=== PATIENT | male | born 1955 | race American Indian/Alaskan Native ===

== ENCOUNTER 2020-11-09 23:09 | Inpatient (IN) | payer MEDICARE ==
[2020-11-10 01:56] LABS: Basophils # (Auto) 0.1 K/mm3 (0.0-0.1); Basophils % (Auto) 0.8 % (0.0-1.8); Eosinophils # (Auto) 0.1 K/mm3 (0.0-0.4); Eosinophils % (Auto) 0.8 % (0.0-4.3); Hematocrit 45.1 % (35.5-45.6); Hemoglobin 15.3 gm/dl (11.8-15.2); Lymphocytes # (Auto) 1.3 K/mm3 (1.2-5.4); Lymphocytes % (Auto) 12.4 % (13.4-35.0); Mean Corpuscular HGB Conc 34 % (32-34); Mean Corpuscular Volume 100 fl (84-94); Monocytes # (Auto) 0.5 K/mm3 (0.0-0.8); Monocytes % (Auto) 4.9 % (0.0-7.3); Platelet Count 195 K/mm3 (140-440); Red Blood Count 4.51 M/mm3 (3.65-5.03); Red Cell Distribution Width 14.3 % (13.2-15.2)
[2020-11-10 02:14] LABS: Calcium 9.6 mg/dL (8.4-10.2)
--- NOTE | 2020-11-10 02:21 | Emergency Department Report ---
ED Dizziness HPI - General Chief Complaint: Dizziness Stated Complaint: DIZZINESS Time Seen by Provider: 11/10/20 02:15 Source: patient Mode of arrival: Stretcher Limitations: No Limitations - History of Present Illness Initial Comments: Patient is a 65-year-old male who presents emergency room with complaints of dizziness. Patient states started about 3 or 4 hours ago. Patient states that he got so dizzy and lightheaded that he fell. Patient states he felt weak and fell to the ground. Patient states he hit his right forearm. Patient complains of right forearm pain at a 10 out of 10. Patient states he is still dizzy at times. Patient states his right forearm pain is better with rest and worse with movement and palpation. Patient states that this is better with rest and worse with movement and exertion. Patient denies chest pain or shortness of breath. Patient denies any SI. Patient denies loss of conscious. Patient denies syncopal episode. Patient denies blurry vision. Patient denies fever and chills. Patient denies neck stiffness Patient denies recent travel. Patient denies recent international travel. Patient denies exposure to the novel coronavirus. Patient denies sick contacts. Patient denies fever and chills. Patient denies cough. Patient denies diarrhea. Patient denies coming in contact with anybody with symptoms of the novel coronavirus. Complaint: dizziness, lightheadedness, near syncope, difficulty walking -: Sudden Timing: sudden onset Description: lightheadedness, off-balance History of Same: No History of Trauma: Yes (Right arm) Severity: severe Improves With: remaining still, rest Worsens With: movement Associated Symptoms: weakness. denies: ataxia, chest pain, confusion, cough, diaphoresis, fever/chills, loss of appetite, malaise, rash, seizure, shortness of breath, syncope - Related Data Allergies Allergy/AdvReac Type Severity Reaction Status Date / Time No Known Allergies Allergy Unverified 11/10/20 00:22 ED Review of Systems ROS: Stated complaint: DIZZINESS Other details as noted in HPI Constitutional: weakness. denies: chills, fever Eyes: denies: eye pain, eye discharge, vision change ENT: denies: ear pain, throat pain Respiratory: denies: cough, shortness of breath, wheezing Cardiovascular: denies: chest pain, palpitations Endocrine: no symptoms reported Gastrointestinal: denies: abdominal pain, nausea, diarrhea Genitourinary: denies: urgency, dysuria Musculoskeletal: denies: back pain, joint swelling, arthralgia Skin: denies: rash, lesions Neurological: as per HPI, weakness. denies: headache, paresthesias Psychiatric: denies: anxiety, depression Hematological/Lymphatic: denies: easy bleeding, easy bruising ED Past Medical Hx - Past Medical History Previous Medical History?: Yes Hx Hypertension: Yes Hx Renal Disease: No Hx Psychiatric Treatment: Yes (Schizophrenia) - Surgical History Past Surgical History?: No - Family History Family history: no significant - Social History Smoking Status: Current Every Day Smoker Substance Use Type: None ED Physical Exam - General Limitations: No Limitations General appearance: alert, in no apparent distress - Head Head exam: Present: atraumatic, normocephalic - Eye Eye exam: Present: normal appearance - ENT ENT exam: Present: mucous membranes moist - Neck Neck exam: Present: normal inspection - Respiratory Respiratory exam: Present: normal lung sounds bilaterally. Absent: respiratory distress - Cardiovascular Cardiovascular Exam: Present: regular rate, normal rhythm. Absent: systolic murmur, diastolic murmur, rubs, gallop - GI/Abdominal GI/Abdominal exam: Present: soft, normal bowel sounds - Rectal Rectal exam: Present: deferred - Extremities Exam Extremities exam: Present: normal inspection - Back Exam Back exam: Present: normal inspection - Neurological Exam Neurological exam: Present: alert, oriented X3 - Psychiatric Psychiatric exam: Present: normal affect, normal mood - Skin Skin exam: Present: warm, dry, intact, normal color. Absent: rash ED Course Vital Signs 11/10/20 11/10/20 11/10/20 00:11 00:30 01:53 Temperature 97.8 F 98.0 F Pulse Rate 63 103 H 73 Respiratory 18 16 17 Rate Blood Pressure 128/74 155/106 Blood Pressure [Left] O2 Sat by Pulse 99 99 Oximetry 11/10/20 11/10/20 11/10/20 02:00 02:30 03:00 Temperature Pulse Rate 77 99 H 74 Respiratory 25 H 29 H 15 Rate Blood Pressure 131/101 131/101 131/101 Blood Pressure 139/107 [Left] O2 Sat by Pulse 100 95 99 Oximetry - Reevaluation(s) Reevaluation #1: I discussed all results with patient. I discussed plan of care with patient. Patient agrees with plan of care and admission. Patient to be admitted to the hospitalist service. 11/10/20 03:41 - Consultations Consultation #1: Hospitalist consulted for admission. Hospitalist to admit patient. 11/10/20 03:41 ED Medical Decision Making - Lab Data Result diagrams: 11/10/20 01:35 11/10/20 01:35 - EKG Data -: EKG Interpreted by Me EKG shows normal: intervals, ST-T waves - EKG Data Interpretation: other (Wide QRS, right bundle branch block, axis deviation, atrial fibrillation, PVCs) - Radiology Data Radiology results: report reviewed, image reviewed interpreted by me: Forearm x-ray: No acute findings, no fracture, soft tissue normal. XR forearm RT , 2 views INDICATION / CLINICAL INFORMATION: Fall, right forearm pain. COMPARISON: None available. FINDINGS/IMPRESSION: No acute fracture or malalignment. No focal soft tissue abnormality. CT HEAD WITHOUT CONTRAST INDICATION / CLINICAL INFORMATION: Dizziness, fall, weakness, lightheadedness.. TECHNIQUE: All CT scans at this location are performed using CT dose reduction for ALARA by means of automated exposure control. COMPARISON: None available. FINDINGS: BRAIN PARENCHYMA: No acute intracranial hemorrhage. No evidence of recent infarct. No mass effect or midline shift. VENTRICULAR SYSTEM/EXTRA-AXIAL SPACES: Age-related cerebral atrophy. No extra- axial fluid collection. ORBITS: Normal as visualized. SKELETAL SYSTEM/SOFT TISSUES: Normal bones and soft tissues. PARANASAL SINUSES/MASTOID AIR CELLS: No significant abnormality. ADDITIONAL FINDINGS: None. IMPRESSION: 1. No acute intracranial abnormality. - Medical Decision Making Patient is a 65-year-old male who presents emergency room with complaints of dizziness, fall, arm pain, weakness. Patient states that he got dizzy and lightheaded and fell and hit his right arm. Patient lost consciousness or hit his head. Patient had labs done showed acute renal failure. Patient had an EKG done which shows new onset A. fib. Patient had a x-ray of his right forearm and it was negative for acute findings of fracture. Patient had a head CT which was negative for acute findings. I personally reviewed the x-ray and the EKG. Patient given IV fluids in the ER. Patient admitted to the hospital service for further evaluation treatment. Critical care time documented due to the multiple reassessments, prolonged time at the bedside, interpretation of diagnostics and labs. - Differential Diagnosis Dizziness, dehydration, A. fib, weakness, fall Critical Care Time: Yes Critical care time in (mins) excluding proc time.: 35 Critical care attestation.: If time is entered above; I have spent that time in minutes in the direct care of this critically ill patient, excluding procedure time. Critical Care Time: 35 minutes ED Disposition Clinical Impression: Dizziness, Right forearm pain, Weakness, New onset atrial fibrillation Acute renal failure Qualifiers: Acute renal failure type: unspecified Qualified Code(s): N17.9 - Acute kidney failure, unspecified Fall Qualifiers: Encounter type: initial encounter Qualified Code(s): W19.XXXA - Unspecified fall, initial encounter Abrasion of right forearm Qualifiers: Encounter type: initial encounter Qualified Code(s): S50.811A - Abrasion of right forearm, initial encounter Disposition: 09 OP ADMIT IP TO THIS HOSP Is pt being admited?: Yes Does the pt Need Aspirin: No Condition: Critical Time of Disposition: 03:12
[2020-11-10] MEDS ORDERED: SODIUM CHLORIDE 0.9% 1000 ML 1,000 ML IV ONE (02:24)
--- NOTE | 2020-11-10 02:57 | XRay Report ---
XR forearm RT , 2 views INDICATION / CLINICAL INFORMATION: Fall, right forearm pain. COMPARISON: None available. FINDINGS/IMPRESSION: No acute fracture or malalignment. No focal soft tissue abnormality. Signer Name: Mark Gallo MD Signed: 11/10/2020 2:52 AM Workstation Name: [id number]
--- NOTE | 2020-11-10 03:18 | Cat Scan Report ---
CT HEAD WITHOUT CONTRAST INDICATION / CLINICAL INFORMATION: Dizziness, fall, weakness, lightheadedness.. TECHNIQUE: All CT scans at this location are performed using CT dose reduction for ALARA by means of automated exposure control. COMPARISON: None available. FINDINGS: BRAIN PARENCHYMA: No acute intracranial hemorrhage. No evidence of recent infarct. No mass effect or midline shift. VENTRICULAR SYSTEM/EXTRA-AXIAL SPACES: Age-related cerebral atrophy. No extra-axial fluid collection. ORBITS: Normal as visualized. SKELETAL SYSTEM/SOFT TISSUES: Normal bones and soft tissues. PARANASAL SINUSES/MASTOID AIR CELLS: No significant abnormality. ADDITIONAL FINDINGS: None. IMPRESSION: 1. No acute intracranial abnormality. Signer Name: Mark Gallo MD Signed: 11/10/2020 3:14 AM Workstation Name: [id number]
[2020-11-10] MEDS ORDERED: ONDANSETRON 4 MG/2 ML INJ IV PRN (04:16)
[2020-11-10] MEDS ORDERED: MORPHINE 2 MG/1 ML INJ IV PRN (04:16)
[2020-11-10] MEDS ORDERED: MORPHINE 4 MG/1 ML INJ IV PRN (04:16)
[2020-11-10] MEDS ORDERED: MAGNESIUM HYDROXIDE (MOM) ORAL LIQD UDC PO PRN (04:16)
--- NOTE | 2020-11-10 04:29 | History and Physical Report ---
History of Present Illness Date of examination: 11/10/20 Date of admission: 11/10/2020 Chief complaint: Dizziness Lightheadedness History of present illness: 65-year-old -[place] male with known history of hypertension presents to the emergency room today with complaints of dizziness and lightheadedness which started a few hours prior to arrival in the emergency room. Patient said he felt weak and thereafter fell to the ground. He denies any loss of consciousness, no head injury, no headache. Patient denies any history of fever or chills, no diaphoresis, no nausea or vomiting, no chest pain or shortness of breath, no abdominal pain, no hematuria or dysuria. Patient denies any history of syncope and denies any history of seizure disorder. Patient complains of right forearm pain after the fall. He denies any unsteady gait. Work-up in the emergency room today, labs revealed elevated BUN and creatinine. EKG reveals atrial fibrillation with a rate of 87. CT scan of the head was unremarkable. X-ray of the right forearm did not show any acute abnormality. Patient is being admitted with dehydration with JAKE, near syncope and new onset atrial fibrillation. Past History Past Medical History: hypertension, other (Schizophrenia) Past Surgical History: No surgical history Social history: smoking (Current daily smoker) Family history: no significant family history Medications and Allergies Allergies Allergy/AdvReac Type Severity Reaction Status Date / Time No Known Allergies Allergy Unverified 11/10/20 00:22 Active Meds: Active Medications Acetaminophen (Acetaminophen 325 Mg Tab) 650 mg PO Q4H PRN PRN Reason: Pain MILD(1-3)/Fever >100.5/FUENTES Sodium Chloride (Nacl 0.9% 1000 Ml) 1,000 mls @ 125 mls/hr IV DIRECT NIURKA Magnesium Hydroxide (Magnesium Hydroxide (Mom) Oral Liqd Udc) 30 ml PO Q4H PRN PRN Reason: Constipation Morphine Sulfate (Morphine 2 Mg/1 Ml Inj) 2 mg IV Q4H PRN PRN Reason: Pain, Moderate (4-6) Morphine Sulfate (Morphine 4 Mg/1 Ml Inj) 4 mg IV Q4H PRN PRN Reason: Pain , Severe (7-10) Ondansetron HCl (Ondansetron 4 Mg/2 Ml Inj) 4 mg IV Q8H PRN PRN Reason: Nausea And Vomiting Sodium Chloride (Sodium Chloride 0.9% 10 Ml Flush Syringe) 10 ml IV BID NIURKA Sodium Chloride (Sodium Chloride 0.9% 10 Ml Flush Syringe) 10 ml IV PRN PRN PRN Reason: LINE FLUSH Review of Systems Constitutional: no fever, no chills Ears, nose, mouth and throat: no nasal congestion, no sore throat Cardiovascular: no chest pain, no palpitations Respiratory: no cough, no shortness of breath Gastrointestinal: no abdominal pain, no nausea, no vomiting, no diarrhea Genitourinary Male: no dysuria, no hematuria, no flank pain, no nocturia Musculoskeletal: no neck pain, no low back pain Integumentary: no rash, no pruritis Neurological: other (Dizziness and lightheadedness) Psychiatric: no anxiety, no depression Endocrine: no polydipsia, no polyuria, no nocturia Exam - Constitutional Vitals: Temp Pulse Resp BP Pulse Ox 98.0 F 65 19 148/101 100 11/10/20 00:30 11/10/20 04:00 11/10/20 04:00 11/10/20 04:00 11/10/20 04:00 General appearance: Present: no acute distress, well-nourished - EENT Eyes: Present: PERRL, EOM intact. Absent: scleral icterus ENT: hearing intact, clear oral mucosa, dentition normal - Neck Neck: Present: supple, normal ROM - Respiratory Respiratory effort: normal Respiratory: bilateral: CTA - Cardiovascular Rhythm: irregularly irregular Heart Sounds: Present: S1 & S2. Absent: gallop, systolic murmur, diastolic murmur, rub, click - Extremities Extremities: no ischemia, pulses intact, pulses symmetrical, No edema, normal temperature, normal color, Full ROM Peripheral Pulses: within normal limits - Abdominal General gastrointestinal: Present: soft, non-tender, non-distended, normal bowel sounds. Absent: mass - Integumentary Integumentary: Present: clear, warm, dry. Absent: rash - Musculoskeletal Musculoskeletal: strength equal bilaterally - Psychiatric Psychiatric: appropriate mood/affect, intact judgment & insight, memory intact, cooperative - Neurologic Neurologic: CNII-XII intact, no focal deficits, moves all extremities - Additional findings Additional findings: Skin: Abrasion on the posterior aspect of the right forearm. Results - Labs CBC & Chem 7: 11/10/20 01:35 11/10/20 01:35 Labs: Abnormal lab results 11/10/20 11/10/20 Range/Units 01:35 01:35 Hgb 15.3 H (11.8-15.2) gm/dl MCV 100 H (84-94) fl MCH 34 H (28-32) pg Lymph % (Auto) 12.4 L (13.4-35.0) % Seg Neutrophils % 81.1 H (40.0-70.0) % Seg Neutrophils # 8.2 H (1.8-7.7) K/mm3 Potassium 3.5 L (3.6-5.0) mmol/L BUN 25 H (9-20) mg/dL Creatinine 1.6 H (0.8-1.3) mg/dL Glucose 118 H (75-100) mg/dL Assessment and Plan - Patient Problems (1) Acute renal failure Current Visit: Yes Status: Acute Qualifiers: Acute renal failure type: unspecified Qualified Code(s): N17.9 - Acute kidney failure, unspecified Plan to address problem: Possibly secondary to dehydration. Patient placed on IV fluid normal saline. Will monitor BUN and creatinine. Consult placed to nephrology for evaluation. (2) Fall Current Visit: Yes Status: Acute Qualifiers: Encounter type: initial encounter Qualified Code(s): W19.XXXA - Unspecified fall, initial encounter Plan to address problem: We will place on fall precautions. (3) New onset atrial fibrillation Current Visit: Yes Status: Acute Plan to address problem: Patient has no known history of atrial fibrillation. Consult placed to cardiology for evaluation. Meanwhile we will schedule patient for echocardiogram (4) DVT prophylaxis Current Visit: Yes Status: Acute Plan to address problem: Patient placed on subcutaneous heparin. (5) Full code status Current Visit: Yes Status: Acute Plan to address problem: Patient is a full code.
[2020-11-10] MEDS: SODIUM CHLORIDE 0.9% 1000 ML 1,000 ML IV SCH ×3 (04:53→19:35)
[2020-11-10] MEDS: HEPARIN 5,000 UNIT/1 ML VIAL SUB-Q SCH ×3 (06:51→22:06)
--- NOTE | 2020-11-10 10:32 | Consultation ---
History of Present Illness Consult date: 11/10/20 Requesting physician: RAE TREADWELL Consult reason: atrial fibrillation History of present illness: Patient is a 65-year-old male who presents emergency room with complaints of dizziness. Patient states started about 3 or 4 hours ago. Patient states that he got so dizzy and lightheaded that he fell. Patient states he felt weak and fell to the ground. Patient states he hit his right forearm. Patient complains of right forearm pain at a 10 out of 10. Patient states he is still dizzy at times. Patient states his right forearm pain is better with rest and worse with movement and palpation. Patient states that this is better with rest and worse with movement and exertion. Patient denies chest pain or shortness of breath. Patient denies any SI. Patient denies loss of conscious. Patient denies syncopal episode. Patient denies blurry vision. Patient denies fever and chills. Patient denies neck stiffness Patient denies recent travel. Patient denies recent international travel. Patient denies exposure to the novel coronavirus. Patient denies sick contacts. Patient denies fever and chills. Patient denies cough. Patient denies diarrhea. Patient denies coming in contact with anybody with symptoms of the novel coronavirus. Patient states that he has is under the care of a biomedical engineering technologist which he saw 1 week prior to hospital admission. Patient does not remember the name of the biomedical engineering technologist and is rather poor historian but might be [facility]. Will discuss with [facility] and try to learn where he is previously established. Past History Past Medical History: hypertension, other (Schizophrenia) Past Surgical History: No surgical history Social history: smoking (Current daily smoker) Family history: no significant family history Medications and Allergies Allergies Allergy/AdvReac Type Severity Reaction Status Date / Time No Known Allergies Allergy Unverified 11/10/20 00:22 Home Medications Medication Instructions Recorded Confirmed Last Taken Type Amlodipine Besylate [Norvasc] 5 mg PO DAILY 11/10/20 11/10/20 1 Day Ago History ~11/09/20 5 mg Aspirin [Aspirin BABY CHEW TAB] 81 mg PO QDAY 11/10/20 11/10/20 1 Day Ago History ~11/09/20 81 mg Metoprolol [Lopressor] 25 mg PO BID 11/10/20 11/10/20 1 Day Ago History ~11/09/20 25 mg amLODIPine [Norvasc] 5 mg PO DAILY 11/10/20 Unknown History hydroCHLOROthiazide 12.5 mg PO DAILY 11/10/20 11/10/20 1 Day Ago History [Hydrochlorothiazide] ~11/09/20 12.5 mg risperiDONE [RisperDAL] 3 mg PO HS 11/10/20 11/10/20 1 Day Ago History ~11/09/20 3 mg Active Meds: Active Medications Acetaminophen (Acetaminophen 325 Mg Tab) 650 mg PO Q4H PRN PRN Reason: Pain MILD(1-3)/Fever >100.5/FUENTES Heparin Sodium (Porcine) (Heparin 5,000 Unit/1 Ml Vial) 5,000 unit SUB-Q Q8HR NIURKA Last Admin: 11/10/20 06:51 Dose: 5,000 unit Documented by: Sodium Chloride (Nacl 0.9% 1000 Ml) 1,000 mls @ 125 mls/hr IV DIRECT NIURKA Last Admin: 11/10/20 08:00 Dose: 125 mls/hr Documented by: Magnesium Hydroxide (Magnesium Hydroxide (Mom) Oral Liqd Udc) 30 ml PO Q4H PRN PRN Reason: Constipation Morphine Sulfate (Morphine 2 Mg/1 Ml Inj) 2 mg IV Q4H PRN PRN Reason: Pain, Moderate (4-6) Morphine Sulfate (Morphine 4 Mg/1 Ml Inj) 4 mg IV Q4H PRN PRN Reason: Pain , Severe (7-10) Ondansetron HCl (Ondansetron 4 Mg/2 Ml Inj) 4 mg IV Q8H PRN PRN Reason: Nausea And Vomiting Sodium Chloride (Sodium Chloride 0.9% 10 Ml Flush Syringe) 10 ml IV BID NIURKA Sodium Chloride (Sodium Chloride 0.9% 10 Ml Flush Syringe) 10 ml IV PRN PRN PRN Reason: LINE FLUSH Review of Systems Constitutional: no weight loss, no weight gain, no fever, no chills, no sweats, no night sweats Ears, nose, mouth and throat: no ear pain, no ear discharge, no nose pain, no nasal congestion, no nasal discharge Cardiovascular: syncope, lightheadedness, no chest pain, no orthopnea, no palpitations, no rapid/irregular heart beat, no edema, no shortness of breath Respiratory: no cough, no hemoptysis, no shortness of breath, no dyspnea on exer tion Gastrointestinal: no abdominal pain, no nausea, no vomiting, no diarrhea Genitourinary Male: no flank pain Musculoskeletal: no neck stiffness, no neck pain, no low back pain, no shooting leg pain Integumentary: no rash, no pruritis, no redness, no sores, no wounds Neurological: no head injury, no paralysis, no weakness, no parathesias, no numbness, no tingling, no seizures, no syncope Psychiatric: no anxiety Endocrine: no cold intolerance Hematologic/Lymphatic: no easy bruising, no easy bleeding Allergic/Immunologic: no urticaria Physical Examination Last Vital Signs Temp 98 F 11/10/20 07:53 Pulse 72 11/10/20 11:21 Resp 19 11/10/20 11:21 BP 134/83 11/10/20 11:21 Pulse Ox 99 11/10/20 11:21 General appearance: no acute distress HEENT: Positive: PERRL, Normocephaly, Mucus Membranes Moist Neck: Positive: neck supple, trachea midline Cardiac: Positive: irregularly irregular Lungs: Positive: Normal Exam Neuro: Positive: Grossly Intact Abdomen: Positive: Unremarkable, Soft Skin: Negative: Rash, Wound Musculoskeletal: No Pain Extremities: Present: upper extr. pulses, lower extr. pulses. Absent: edema Results 11/10/20 01:35 11/10/20 01:35 CBC 11/10/20 Range/Units 01:35 WBC 10.2 (4.5-11.0) K/mm3 RBC 4.51 (3.65-5.03) M/mm3 Hgb 15.3 H (11.8-15.2) gm/dl Hct 45.1 (35.5-45.6) % Plt Count 195 (140-440) K/mm3 Lymph # (Auto) 1.3 (1.2-5.4) K/mm3 [facility] # (Auto) 0.5 (0.0-0.8) K/mm3 Eos # (Auto) 0.1 (0.0-0.4) K/mm3 Baso # (Auto) 0.1 (0.0-0.1) K/mm3 Comprehensive Metabolic Panel 11/10/20 Range/Units 01:35 Sodium 142 (137-145) mmol/L Potassium 3.5 L (3.6-5.0) mmol/L Chloride 101.4 (98-107) mmol/L Carbon Dioxide 28 (22-30) mmol/L BUN 25 H (9-20) mg/dL Creatinine 1.6 H (0.8-1.3) mg/dL Glucose 118 H (75-100) mg/dL Calcium 9.6 (8.4-10.2) mg/dL - Imaging and Cardiology Echo: pending EKG interpretations - Telemetry EKG Rhythm: Atrial Fibrillation - EKG Supraventricular dysrhythmia: atrial fibrillation Assessment and Plan Atrial fibrillation with controlled ventricular response * Echocardiogram is pending * Continue to monitor on telemetry * Patient has established cardiology but med list does not include anticoagulation. If patient remains in atrial fibrillation overnight will initiate anticoagulation. If records of home anticoagulation can be established then patient may resume home anticoagulation agent. PreSynope * Patient states he had cardiac work-up 1 week prior to hospital admission for presyncope and dizziness. If records can be obtained we would not have to rep eat these tests. We will try to establish to his biomedical engineering technologist is and obtain records. Patient may ultimately benefit from electrophysiology consult for symptomatic bradycardia. JAKE * No PAT/ARB in setting of JAEK. Avoid nephrotoxic agents DVT prophylaxis * Management per primary team Need to determine who patient's established cardiology is and obtain records. Echocardiogram is pending. Will follow Patient was seen in conjunction with Dr Huynh who agrees with this assessment and plan of care - Patient Problems (1) JAKE (acute kidney injury) Current Visit: Yes Status: Acute (2) Atrial fibrillation Current Visit: Yes Status: Acute (3) Dehydration Current Visit: Yes Status: Acute (4) DVT prophylaxis Current Visit: Yes Status: Acute
[2020-11-11] MEDS: SODIUM CHLORIDE 0.9% 1000 ML 1,000 ML IV SCH ×3 (04:00→23:15)
[2020-11-11] MEDS: HEPARIN 5,000 UNIT/1 ML VIAL SUB-Q SCH (05:03)
[2020-11-11 06:10] LABS: Basophils # (Auto) 0.1 K/mm3 (0.0-0.1); Eosinophils # (Auto) 0.3 K/mm3 (0.0-0.4); Hematocrit 40.6 % (35.5-45.6); Hemoglobin 13.7 gm/dl (11.8-15.2); Lymphocytes # (Auto) 2.5 K/mm3 (1.2-5.4); Lymphocytes % (Auto) 32.1 % (13.4-35.0); Mean Corpuscular HGB Conc 34 % (32-34); Mean Corpuscular Volume 101 fl (84-94); Monocytes # (Auto) 0.8 K/mm3 (0.0-0.8); Monocytes % (Auto) 9.8 % (0.0-7.3); Platelet Count 169 K/mm3 (140-440); Red Blood Count 4.01 M/mm3 (3.65-5.03)
[2020-11-11 06:21] LABS: INR 1.08 (0.87-1.13)
[2020-11-11 06:30] LABS: BUN/Creatinine Ratio 13; Blood Urea Nitrogen 13 mg/dL (9-20); Calcium 8.7 mg/dL (8.4-10.2); Hemolysis Index 7
[2020-11-11] MEDS: POTASSIUM CHLORIDE 10 MEQ 10 MEQ/100 ML BAG IV SCH ×4 (10:01→15:05)
[2020-11-11] MEDS ORDERED: HEPARIN 10,000 UNITS/10 ML VIAL IV PRN (11:38)
--- NOTE | 2020-11-11 11:41 | Progress Note ---
Assessment and Plan Atrial fibrillation with controlled ventricular response * Echocardiogram is pending * Optimize rate control: Initiate metoprolol 25 mg twice daily * Address anticoagulation: We will start heparin drip at standard intensity protocol with loading dose due to possible need for PPM placement this admission. PreSynope * Patient states he had cardiac work-up 1 week prior to hospital admission for presyncope and dizziness. If records can be obtained we would not have to repeat these tests. 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 Patient may ultimately benefit from electrophysiology consult for symptomatic bradycardia. JAKE * No PAT/ARB in setting of JAKE. Avoid nephrotoxic agents DVT prophylaxis * Management per primary team Need to determine who patient's established cardiology is and obtain records. Echocardiogram is pending. Will follow Patient was seen in conjunction with Dr Huynh who agrees with this assessment and plan of care - Patient Problems (1) JAKE (acute kidney injury) Current Visit: Yes Status: Acute (2) Atrial fibrillation Current Visit: Yes Status: Acute (3) Dehydration Current Visit: Yes Status: Acute (4) DVT prophylaxis Current Visit: Yes Status: Acute Subjective Date of service: 11/11/20 Principal diagnosis: Syncope Interval history: Patient resting comfortably in bed. No shortness of breath or chest pain overnight Telemetry reviewed shows A. fib in the nineties with episode of RVR 150 noted overnight. No events Objective Last Vital Signs Temp 97.6 F 11/11/20 08:07 Pulse 66 11/11/20 08:00 Resp 21 11/11/20 08:00 BP 154/109 11/11/20 08:00 Pulse Ox 99 11/11/20 08:00 - Physical Examination HEENT: Positive: PERRL, Normocephaly, Mucus Membranes Moist Neck: Positive: neck supple, trachea midline Cardiac: Positive: irregularly irregular, S1/S2 Lungs: Positive: Normal Exam, Normal Breath Sounds Neuro: Positive: Grossly Intact Abdomen: Positive: Unremarkable, Soft Skin: Negative: Rash, Wound Musculoskeletal: No Pain Extremities: Present: upper extr. pulses, lower extr. pulses. Absent: edema - Labs and Meds Coagulation 11/11/20 Range/Units 04:37 PT 14.5 (12.2-14.9) Sec. INR 1.08 (0.87-1.13) CBC 11/11/20 Range/Units 04:37 WBC 7.9 (4.5-11.0) K/mm3 RBC 4.01 (3.65-5.03) M/mm3 Hgb 13.7 (11.8-15.2) gm/dl Hct 40.6 (35.5-45.6) % Plt Count 169 (140-440) K/mm3 Lymph # (Auto) 2.5 (1.2-5.4) K/mm3 [place] # (Auto) 0.8 (0.0-0.8) K/mm3 Eos # (Auto) 0.3 (0.0-0.4) K/mm3 Baso # (Auto) 0.1 (0.0-0.1) K/mm3 Comprehensive Metabolic Panel 11/11/20 Range/Units 04:37 Sodium 142 (137-145) mmol/L Potassium 3.1 L (3.6-5.0) mmol/L Chloride 105.4 (98-107) mmol/L Carbon Dioxide 28 (22-30) mmol/L BUN 13 (9-20) mg/dL Creatinine 1.0 (0.8-1.3) mg/dL Glucose 82 (75-100) mg/dL Calcium 8.7 (8.4-10.2) mg/dL - Imaging and Cardiology EKG: report reviewed, image reviewed Echo: pending - Telemetry EKG Rhythm: Atrial Fibrillation - EKG Supraventricular dysrhythmia: atrial fibrillation
[2020-11-11] MEDS ORDERED: HEPARIN 10,000 UNITS/10 ML VIAL IV ONE (12:00)
[2020-11-11 12:26] LABS: Hematocrit 44.2 % (35.5-45.6); Hemoglobin 14.9 gm/dl (11.8-15.2)
[2020-11-11 12:30] LABS: INR 1.09 (0.87-1.13)
[2020-11-11 12:31] LABS: Partial Thromboplastin Time 29.7 Sec. (24.2-36.6)
[2020-11-11] MEDS: METOPROLOL TARTRATE 25 MG TAB PO SCH ×2 (12:39→21:47)
[2020-11-11] MEDS: HEPARIN/ 0.45% NACL DRIP 25,000 UNIT/500 ML BAG IV SCH (13:42)
--- NOTE | 2020-11-11 18:00 | Progress Note ---
Assessment and Plan Assessment and Plan - Patient Problems (1) Acute renal failure Current Visit: Yes Status: Acute Qualifiers: Acute renal failure type: unspecified Qualified Code(s): N17.9 - Acute kidney failure, unspecified Plan to address problem: Possibly secondary to dehydration. Patient placed on IV fluid normal saline. Will monitor BUN and creatinine. Consult placed to nephrology for evaluation. (2) Fall Current Visit: Yes Status: Acute Qualifiers: Encounter type: initial encounter Qualified Code(s): W19.XXXA - Unspecified fall, initial encounter Plan to address problem: We will place on fall precautions. (3) New onset atrial fibrillation Current Visit: Yes Status: Acute Plan to address problem: Patient has no known history of atrial fibrillation. Consult placed to cardiology for evaluation. Meanwhile we will schedule patient for echocardiogram (4) DVT prophylaxis Current Visit: Yes Status: Acute Plan to address problem: Patient placed on subcutaneous heparin. (5) Full code status Current Visit: Yes Status: Acute Plan to address problem: Patient is a full code. Subjective Date of service: 11/11/20 Principal diagnosis: JAKE Interval history: 65-year-old -Dominican male with known history of hypertension presents to the emergency room today with complaints of dizziness and lightheadedness which started a few hours prior to arrival in the emergency room. Patient said he felt weak and thereafter fell to the ground. He denies any loss of consciousness, no head injury, no headache. Patient denies any history of fever or chills, no diaphoresis, no nausea or vomiting, no chest pain or shortness of breath, no abdominal pain, no hematuria or dysuria. Patient denies any history of syncope and denies any history of seizure disorder. Patient complains of right forearm pain after the fall. He denies any unsteady gait. Work-up in the emergency room today, labs revealed elevated BUN and creatinine. EKG reveals atrial fibrillation with a rate of 87. CT scan of the head was unremarkable. X-ray of the right forearm did not show any acute abnormality. Patient is being admitted with dehydration with JAKE, near syncope and new onset atrial fibrillation. Objective - Constitutional Vitals: Vital Signs - 12hr 11/11/20 11/11/20 11/11/20 06:00 07:00 08:00 Temperature Pulse Rate 69 61 73 Pulse Rate [ 66 From Monitor] Respiratory 21 15 21 Rate Respiratory Rate [Right Arm ] Blood Pressure 155/104 156/105 154/109 O2 Sat by Pulse 100 99 99 Oximetry 11/11/20 11/11/20 11/11/20 08:07 09:00 10:00 Temperature 97.6 F Pulse Rate 67 73 Pulse Rate [ From Monitor] Respiratory 16 19 Rate Respiratory 16 Rate [Right Arm ] Blood Pressure 143/99 152/104 O2 Sat by Pulse 100 99 Oximetry 11/11/20 11/11/20 11/11/20 11:01 11:55 12:00 Temperature 97.4 F L Pulse Rate 90 108 H Pulse Rate [ 100 H From Monitor] Respiratory 22 22 Rate Respiratory Rate [Right Arm ] Blood Pressure 169/123 169/123 O2 Sat by Pulse 100 99 Oximetry 11/11/20 11/11/20 11/11/20 12:39 13:00 14:00 Temperature Pulse Rate 71 80 102 H Pulse Rate [ From Monitor] Respiratory 20 17 Rate Respiratory Rate [Right Arm ] Blood Pressure 141/103 148/103 188/132 O2 Sat by Pulse 99 100 Oximetry 11/11/20 11/11/20 11/11/20 15:00 16:00 16:22 Temperature 98.8 F Pulse Rate 111 H 64 Pulse Rate [ 100 H From Monitor] Respiratory 19 15 Rate Respiratory Rate [Right Arm ] Blood Pressure 176/137 150/98 O2 Sat by Pulse 100 100 Oximetry General appearance: Present: no acute distress, well-nourished - EENT Eyes: PERRL, EOM intact ENT: hearing intact, clear oral mucosa Ears: bilateral: normal - Neck Neck: supple, normal ROM - Respiratory Respiratory effort: normal Respiratory: bilateral: CTA - Breasts Breasts: normal - Cardiovascular Heart rate: 78 Rhythm: regular Heart Sounds: Present: S1 & S2. Absent: gallop, rub Extremities: pulses intact, No edema, normal color, Full ROM - Gastrointestinal General gastrointestinal: Present: soft, non-tender, non-distended, normal bowel sounds - Genitourinary Male genitourinary: normal - Integumentary Integumentary: clear, warm, dry - Musculoskeletal Musculoskeletal: 1, strength equal bilaterally - Neurologic Neurologic: moves all extremities - Psychiatric Psychiatric: memory intact, appropriate mood/affect, intact judgment & insight - Labs CBC & Chem 7: 11/11/20 11:57 11/11/20 04:37 Labs: Abnormal lab results 11/11/20 11/11/20 Range/Units 04:37 04:37 MCV 101 H (84-94) fl MCH 34 H (28-32) pg [place] % (Auto) 9.8 H (0.0-7.3) % Potassium 3.1 L (3.6-5.0) mmol/L HEART Score - HEART Score Troponin: Troponin T < 0.010 ng/mL (0.00-0.029) 11/11/20 04:37
[2020-11-12] MEDS: SODIUM CHLORIDE 0.9% 1000 ML 1,000 ML IV SCH ×2 (06:43→15:16)
[2020-11-12] MEDS: METOPROLOL TARTRATE 25 MG TAB PO SCH (09:09)
--- NOTE | 2020-11-12 11:40 | Consultation ---
History of Present Illness Consult date: 11/12/20 Consult reason: atrial fibrillation, syncope History of present illness: The patient is a 65-year-old man admitted 2 days ago with complaints of dizziness and presyncope. On his presentation, he was found to have atrial fibrillation. Initial ECG was in atrial fibrillation with well-controlled ventricular rate, and a right bundle branch block. At the time of his presentation there was no AV reyna blocking agents. We are asked to continue his cardiac care. Apparently last week he saw Dr. Whitaker from my group in the office, as an initial cardiac consult. This was presumably for the finding of new atrial fibrillation. He was placed on a 24-hour Holter monitor which he has completed and submitted, and follow-up with Dr. Whitaker was planned for later this week, prior to his current hospitalization. Currently, the patient is in the ICU, comfortable with no chest pain or shortness of breath. However he remains in atrial fibrillation, and during my assessment of his telemetry he has persistently slow atrial fibrillation in the low to mid 50s, with frequent, 1 to 2-second pauses. At this time he is on metoprolol 25 mg twice daily which I have discontinued. His thyroid-stimulating hormone level is normal at 2.04. Echocardiogram done during this hospitalization shows well-preserved left vent ricular systolic function, ejection fraction 50 to 55%, with moderate dilatation of both right and left atria. The left atrial diameter is 4.8. Past History Past Medical History: atrial fib, hypertension, other (Schizophrenia) Past Surgical History: No surgical history Social history: smoking (Current daily smoker) Family history: no significant family history Medications and Allergies Allergies Allergy/AdvReac Type Severity Reaction Status Date / Time No Known Allergies Allergy Verified 11/10/20 18:18 Home Medications Medication Instructions Recorded Confirmed Last Taken Type Amlodipine Besylate [Norvasc] 5 mg PO DAILY 11/10/20 11/10/20 1 Day Ago History ~11/09/20 5 mg Aspirin [Aspirin BABY CHEW TAB] 81 mg PO QDAY 11/10/20 11/10/20 1 Day Ago History ~11/09/20 81 mg Metoprolol [Lopressor] 25 mg PO BID 11/10/20 11/10/20 1 Day Ago History ~11/09/20 25 mg hydroCHLOROthiazide 12.5 mg PO DAILY 11/10/20 11/10/20 1 Day Ago History [Hydrochlorothiazide] ~11/09/20 12.5 mg risperiDONE [RisperDAL] 3 mg PO HS 11/10/20 11/10/20 1 Day Ago History ~11/09/20 3 mg Active Meds: Active Medications Acetaminophen (Acetaminophen 325 Mg Tab) 650 mg PO Q4H PRN PRN Reason: Pain MILD(1-3)/Fever >100.5/FUENTES Heparin Sodium (Porcine) (Heparin 10,000 Units/10 Ml Vial) 3,500 unit 40 unit/kg (3500 unit) IV Q6H PRN PRN Reason: Anti-Xa Assay < 0.1 units/ml Sodium Chloride (Nacl 0.9% 1000 Ml) 1,000 mls @ 125 mls/hr IV DIRECT NIURKA Last Admin: 11/12/20 06:43 Dose: 125 mls/hr Documented by: Heparin Sodium/Sodium Chloride (Heparin/ 0.45% Nacl-25,000 Unit/500 Ml) 25,000 unit in 500 mls @ 26 mls/hr IV TITR NIURKA; Protocol Last Titration: 11/12/20 07:05 Dose: 1,050 units/hr, 21 mls/hr Documented by: Magnesium Hydroxide (Magnesium Hydroxide (Mom) Oral Liqd Udc) 30 ml PO Q4H PRN PRN Reason: Constipation Morphine Sulfate (Morphine 2 Mg/1 Ml Inj) 2 mg IV Q4H PRN PRN Reason: Pain, Moderate (4-6) Last Admin: 11/11/20 11:09 Dose: 2 mg Documented by: Morphine Sulfate (Morphine 4 Mg/1 Ml Inj) 4 mg IV Q4H PRN PRN Reason: Pain , Severe (7-10) Nifedipine (Nifedipine Xl 60 Mg Tab) 60 mg PO QDAY [facility] Ondansetron HCl (Ondansetron 4 Mg/2 Ml Inj) 4 mg IV Q8H PRN PRN Reason: Nausea And Vomiting Sodium Chloride (Sodium Chloride 0.9% 10 Ml Flush Syringe) 10 ml IV BID [facility] Last Admin: 11/12/20 09:11 Dose: 10 ml Documented by: Sodium Chloride (Sodium Chloride 0.9% 10 Ml Flush Syringe) 10 ml IV PRN PRN PRN Reason: LINE FLUSH Review of Systems Cardiovascular: palpitations, syncope, lightheadedness, no chest pain, no orthopnea, no rapid/irregular heart beat, no edema, no shortness of breath Physical Examination Vital Signs Temp Pulse Resp BP Pulse Ox 97.8 F 63 18 128/74 99 11/10/20 00:11 11/10/20 00:11 11/10/20 00:11 11/10/20 00:11 11/10/20 00:11 General appearance: no acute distress HEENT: Positive: PERRL Neck: Positive: neck supple Cardiac: Positive: irregularly irregular Lungs: Positive: Decreased Breath Sounds Neuro: Positive: Grossly Intact Abdomen: Positive: Soft Male genitourinary: Positive: deferred Skin: Positive: Clear Extremities: Absent: edema Results 11/11/20 11:57 11/11/20 04:37 Coagulation 11/11/20 Range/Units 11:57 PT 14.6 (12.2-14.9) Sec. INR 1.09 (0.87-1.13) APTT 29.7 (24.2-36.6) Sec. CBC 11/11/20 Range/Units 11:57 Hgb 14.9 (11.8-15.2) gm/dl Hct 44.2 (35.5-45.6) % Plt Count 171 (140-440) K/mm3 EKG interpretations - Telemetry EKG Rhythm: Atrial Fibrillation (With right bundle branch block) Assessment and Plan - Patient Problems (1) Atrial fibrillation Current Visit: Yes Status: Acute Plan to address problem: Patient is hospitalized with dizziness and presyncope, atrial fibrillation of uncertain chronicity, with baseline rate control suggestive of underlying conduction system disease. TSH level is normal, and left atrial size is 4.8. Patient wore a 24-hour Holter prior to admission, we will review the report. We will discontinue metoprolol, monitor rate control without AV reyna blocking agents. Further management will depend on clinical course, we will consider DAKOTA guided cardioversion, to restore sinus rhythm versus rhythm control of atrial fibrillation with mechanical pacing. (2) Hypertension Current Visit: Yes Status: Acute Plan to address problem: Patient was on amlodipine at home, we will use this agent or Procardia XL 60 mg for hypertension management.
[2020-11-12] MEDS ORDERED: NIFEdipine XL 60 MG TAB PO SCH (12:00)
[2020-11-12] MEDS: amLODIPine 10 MG TAB PO SCH (12:47)
[2020-11-12] MEDS: HEPARIN/ 0.45% NACL DRIP 25,000 UNIT/500 ML BAG IV SCH (12:48)
--- NOTE | 2020-11-12 14:35 | Vascular Lab Report ---
DUPLEX DOPPLER ULTRASOUND CAROTID, BILATERAL INDICATION / CLINICAL INFORMATION: Syncope. COMPARISON: None available. FINDINGS: RIGHT CAROTID: A small amount of calcified and noncalcified plaque is present within the bulb, extend ing into proximal ICA. - PLAQUE ESTIMATE (%): < 50% - CCA velocity: 35 cm/sec. - ICA peak systolic velocity: 47 cm/sec. - ICA/CCA PSV Ratio: Less than 2. Right Vertebral Artery: Antegrade flow. LEFT CAROTID: No significant abnormality. - PLAQUE ESTIMATE (%): < 50% - CCA velocity: 29 cm/sec. - ICA peak systolic velocity: 47 cm/sec. - ICA/CCA PSV Ratio: Less than 2. Left Vertebral Artery: Antegrade flow. IMPRESSION: 1. Right Internal Carotid Artery: Less than 50% diameter stenosis. 2. Left Internal Carotid Artery: Normal. Velocity criteria are extrapolated from diameter data as defined by the Society of Radiologists in Ul trasound Consensus Conference, Radiology 2003; 229;340-346. NO STENOSIS (NORMAL) - Plaque = none; ICA PSV < 125 cm/sec; ICA/CCA PSV Ratio < 2.0 <50% STENOSIS - Plaque < 50%; ICA PSV < 125 cm/sec; ICA/CCA PSV Ratio < 2.0 50-69% STENOSIS - Plaque > 50%; ICA PSV = 125-230 cm/sec; ICA/CCA PSV Ratio = 2.0-4.0 >70% BUT <100% STENOSIS - Plaque > 50%; ICA PSV > 230 cm/sec; ICA/CCA PSV Ratio > 4.0 NEAR OCCLUSION - Plaque = visible lumen; ICA PSV = high/low/none; ICA/CCA PSV Ratio = variable TOTAL OCCLUSION - Plaque = no lumen; ICA PSV = none; ICA/CCA PSV Ratio = N/A Scribed by: Ginny Adcox RDMS, RVT Scribed: 11/12/2020 1:22 PM I have reviewed the images, agree with this report, and edited this report as needed. Signer Name: Pippa Ross MD Signed: 11/12/2020 2:31 PM Workstation Name: [id number]
--- NOTE | 2020-11-12 17:49 | Electrocardiograph Report ---
[facility] Test Date: 2020-11-10 Test Time: 00:23:45 Pat Name: JORDAN HOSKINS Department: Room: A264 1 Gender: M Ophthalmic Technologist: RIO : 1955 Requested By: RICK CHERRY III Order Number: [id number] Reading MD: Irvin Caro Measurements Intervals Ranger Rate: 87 P: [place]: QRS: -88 QRSD: 139 T: -18 QT: 406 QTc: 488 Interpretive Statements Atrial fibrillation Or atrial flutter with variable AV conduction Ventricular premature complex RBBB and LAFB No previous ECG available for comparison Electronically Signed On 11-12-2020 17:48:57 EDT by Irvin Caro
[2020-11-13] MEDS: SODIUM CHLORIDE 0.9% 1000 ML 1,000 ML IV SCH ×3 (00:06→16:38)
--- NOTE | 2020-11-13 03:16 | Progress Note ---
Assessment and Plan Assessment and Plan - Patient Problems (1) Acute renal failure JAKE sec to ATN IV fluids for now (2) Fall Current Visit: Yes Status: Acute Qualifiers: Encounter type: initial encounter Qualified Code(s): W19.XXXA - Unspecified fall, initial encounter Plan to address problem: We will place on fall precautions. (3) New onset atrial fibrillation Current Visit: Yes Status: Acute Plan to address problem: Patient has no known history of atrial fibrillation. Consult placed to cardiology for evaluation. Meanwhile we will schedule patient for echocardiogram (4) DVT prophylaxis Current Visit: Yes Status: Acute Plan to address problem: Patient placed on subcutaneous heparin. (5) Full code status Current Visit: Yes Status: Acute Plan to address problem: Patient is a full code. Subjective Date of service: 11/12/20 Principal diagnosis: JAKE Interval history: 65-year-old -Swiss male with known history of hypertension presents to the emergency room today with complaints of dizziness and lightheadedness which started a few hours prior to arrival in the emergency room. Patient said he felt weak and thereafter fell to the ground. He denies any loss of consciousness, no head injury, no headache. Patient denies any history of fever or chills, no diaphoresis, no nausea or vomiting, no chest pain or shortness of breath, no abdominal pain, no hematuria or dysuria. Patient denies any history of syncope and denies any history of seizure disorder. Patient complains of right forearm pain after the fall. He denies any unsteady gait. Work-up in the emergency room today, labs revealed elevated BUN and creatinine. EKG reveals atrial fibrillation with a rate of 87. CT scan of the head was unremarkable. X-ray of the right forearm did not show any acute abnormality. Patient is being admitted with dehydration with JAKE, near syncope and new onset atrial fibrillation. 11/12/20 Much improved Objective - Constitutional Vitals: Vital Signs - 12hr 11/12/20 11/12/20 11/12/20 16:00 17:00 18:00 Temperature Pulse Rate 67 94 H 49 L Pulse Rate [ 67 From Monitor] Respiratory 18 14 17 Rate Blood Pressure 155/105 147/111 147/111 O2 Sat by Pulse 100 87 99 Oximetry 11/12/20 11/12/20 11/12/20 19:00 20:00 21:00 Temperature 97.3 F L Pulse Rate 62 53 L 60 Pulse Rate [ 53 L From Monitor] Respiratory 19 20 22 Rate Blood Pressure 155/100 O2 Sat by Pulse 100 97 98 Oximetry 11/12/20 11/12/20 11/12/20 22:00 23:00 23:48 Temperature Pulse Rate 54 L 60 67 Pulse Rate [ From Monitor] Respiratory 20 14 18 Rate Blood Pressure 157/111 155/104 157/111 O2 Sat by Pulse 99 100 98 Oximetry 11/12/20 11/13/20 23:50 00:00 Temperature 97.4 F L Pulse Rate 67 Pulse Rate [ 57 L From Monitor] Respiratory 20 Rate Blood Pressure 164/118 O2 Sat by Pulse 100 Oximetry General appearance: Present: no acute distress, well-nourished - EENT Eyes: PERRL, EOM intact ENT: hearing intact, clear oral mucosa Ears: bilateral: normal - Neck Neck: supple, normal ROM - Respiratory Respiratory effort: normal Respiratory: bilateral: CTA - Breasts Breasts: normal - Cardiovascular Heart rate: 80 Rhythm: irregularly irregular Heart Sounds: Present: S1 & S2. Absent: gallop, rub Extremities: pulses intact, No edema, normal color, Full ROM - Gastrointestinal General gastrointestinal: Present: soft, non-tender, non-distended, normal bowel sounds - Genitourinary Male genitourinary: normal - Integumentary Integumentary: clear, warm, dry - Musculoskeletal Musculoskeletal: 1, strength equal bilaterally - Neurologic Neurologic: moves all extremities - Psychiatric Psychiatric: memory intact, appropriate mood/affect, intact judgment & insight - Labs CBC & Chem 7: 11/11/20 11:57 11/11/20 04:37 Labs: Abnormal lab results 11/12/20 Range/Units 04:47 Heparin Anti-Xa Level 0.82 H (0.3-0.7) U.I./ml HEART Score - HEART Score Troponin: Troponin T < 0.010 ng/mL (0.00-0.029) 11/11/20 04:37
[2020-11-13] MEDS: amLODIPine 10 MG TAB PO SCH (09:54)
--- NOTE | 2020-11-13 10:13 | Progress Note ---
Assessment and Plan Pre-syncope Atrial fibrillation of uncertain chronicity rate control without AV reyna blocking agents suggestive of underlying conduction system disease. TSH level is normal Hypertension Recommendations: Discontinue amlodipine. Will use Procardia XL 60 mg for hypertension. Avoid AV reyna blocking agents due to underlying conduction system disease. Discontinue IV heparin and replace with Eliquis for oral anticoagulation. We will arrange for a DAKOTA guided cardioversion, to restore sinus rhythm. Subjective Date of service: 11/13/20 Principal diagnosis: JAKE Interval history: Patient is resting in bed and appears comfortable. Blood pressure remains uncontrolled. Currently, he is atrial fibrillation with a well controlled ventricular rate on telemetry. Objective Vital Signs Temp Pulse Pulse Resp BP Pulse Ox 11/13/20 09:54 60 159/118 11/13/20 08:00 97.4 F L 11/13/20 07:00 72 11 L 165/126 100 11/13/20 06:00 55 L 17 182/125 97 11/13/20 05:00 51 L 20 169/106 97 11/13/20 04:00 97.4 F L 59 L 61 18 163/123 99 11/13/20 03:00 69 22 139/95 100 11/13/20 02:00 50 L 19 180/121 98 11/13/20 01:00 52 L 18 180/121 99 11/13/20 00:00 67 57 L 20 164/118 100 11/12/20 23:50 97.4 F L 11/12/20 23:48 67 18 157/111 98 11/12/20 23:00 60 14 155/104 100 11/12/20 22:00 54 L 20 157/111 99 11/12/20 21:00 60 22 155/100 98 11/12/20 20:00 97.3 F L 53 L 53 L 20 97 11/12/20 19:00 62 19 100 11/12/20 18:00 49 L 17 147/111 99 11/12/20 17:00 94 H 14 147/111 87 11/12/20 16:00 67 67 18 155/105 100 11/12/20 15:00 68 16 138/94 97 11/12/20 14:00 59 L 18 145/107 11/12/20 13:00 60 21 147/106 11/12/20 12:47 152/111 11/12/20 12:00 59 L 59 L 18 146/119 98 11/12/20 11:00 60 18 143/121 100 - Physical Examination General: No Apparent Distress HEENT: Positive: PERRL Neck: Positive: neck supple Cardiac: Positive: irregularly irregular Lungs: Positive: Decreased Breath Sounds Neuro: Positive: Grossly Intact Abdomen: Positive: Soft Extremities: Absent: edema
[2020-11-13 10:44] LABS: Hematocrit 44.5 % (35.5-45.6)
[2020-11-13 11:05] LABS: Blood Urea Nitrogen 9 mg/dL (9-20); Calcium 8.9 mg/dL (8.4-10.2); Hemolysis Index 18
[2020-11-13 11:07] LABS: BUN/Creatinine Ratio 13
[2020-11-13] MEDS: APIXABAN 5 MG TAB PO SCH ×2 (12:23→21:19)
[2020-11-13] MEDS: NIFEdipine XL 60 MG TAB PO SCH (12:23)
[2020-11-13 15:57] LABS: Hematocrit 46.3 % (35.5-45.6); Hemoglobin 15.8 gm/dl (11.8-15.2); Mean Corpuscular HGB Conc 34 % (32-34); Mean Corpuscular Volume 101 fl (84-94); Platelet Count 168 K/mm3 (140-440)
[2020-11-13 16:04] LABS: INR 1.18 (0.87-1.13)
[2020-11-13 16:05] LABS: Partial Thromboplastin Time 28.4 Sec. (24.2-36.6)
--- NOTE | 2020-11-13 17:03 | Progress Note ---
Assessment and Plan Assessment and plan: --New onset atrial fibrillation/rate controlled Current Visit: Yes Status: Acute Patient has no known history of atrial fibrillation. Cardiology following, continue beta-blockers Anticoagulation with Eliquis, DAKOTA guided cardioversion tomorrow per cardiology --Hypokalemia ; Current Visit: Yes Status: Acute Replenished with oral KCl Monitor electrolytes -- Acute renal failure Current Visit: Yes Status: Acute JAKE sec to ATN, IV fluids for now Closely monitor renal function, avoid nephrotoxin Nephrology evaluation if no improvement --Near syncope; Current Visit: Yes Status: Acute Continue syncope work-up CT head, carotid Doppler, echocardiogram Fall precautions, PT OT Possible home health upon discharge --History of fall Current Visit: Yes Status: Acute Fall precautions. Physical therapy occupational therapy Possible home with home health --DVT prophylaxis Current Visit: Yes Status: Acute Patient placed on subcutaneous heparin. --Full code status Current Visit: Yes Status: Acute Patient is a full code. Subjective Date of service: 11/12/20 Principal diagnosis: JAKE Interval history: 65-year-old -[place] male with known history of hypertension presents to the emergency room today with complaints of dizziness and lightheadedness which started a few hours prior to arrival in the emergency room. Patient said he felt weak and thereafter fell to the ground. He denies any loss of consciousness, no head injury, no headache. Patient denies any history of fever or chills, no diaphoresis, no nausea or vomiting, no chest pain or shortness of breath, no abdominal pain, no hematuria or dysuria. Patient denies any history of syncope and denies any history of seizure disorder. Patient complains of right forearm pain after the fall. He denies any unsteady gait. Work-up in the emergency room today, labs revealed elevated BUN and creatinine. EKG reveals atrial fibrillation with a rate of 87. CT scan of the head was unremarkable. X-ray of the right forearm did not show any acute abnormality. Patient is being admitted with dehydration with JAKE, near syncope and new onset atrial fibrillation. 11/12/20 Much improved 11/13/2020 History Interval history: I have seen and examined the patient at the bedside Patient's chart and medications reviewed Patient feels slightly better Vital signs noted Hospitalist Physical - Constitutional Vitals: Temp Pulse Resp BP Pulse Ox 97.5 F L 66 14 164/113 100 11/13/20 12:00 11/13/20 16:00 11/13/20 16:00 11/13/20 16:00 11/13/20 16:00 General appearance: Present: no acute distress, well-nourished - EENT Eyes: Present: PERRL, EOM intact - Neck Neck: Present: supple, normal ROM - Respiratory Respiratory effort: normal Respiratory: bilateral: diminished, negative: rales, rhonchi, wheezing - Cardiovascular Rhythm: regular Heart Sounds: Present: S1 & S2 - Abdominal General gastrointestinal: soft, non-tender, non-distended, normal bowel sounds - Integumentary Integumentary: Present: clear, warm - Psychiatric Psychiatric: appropriate mood/affect, cooperative - Neurologic Neurologic: CNII-XII intact, moves all extremities HEART Score - HEART Score Troponin: Troponin T < 0.010 ng/mL (0.00-0.029) 11/11/20 04:37 Results - Labs CBC & Chem 7: 11/13/20 15:09 11/13/20 15:09 Labs: Laboratory Last Values WBC 6.4 K/mm3 (4.5-11.0) 11/13/20 15:09 RBC 4.60 M/mm3 (3.65-5.03) 11/13/20 15:09 Hgb 15.8 gm/dl (11.8-15.2) H 11/13/20 15:09 Hct 46.3 % (35.5-45.6) H 11/13/20 15:09 MCV 101 fl (84-94) H 11/13/20 15:09 MCH 34 pg (28-32) H 11/13/20 15:09 MCHC 34 % (32-34) 11/13/20 15:09 RDW 14.0 % (13.2-15.2) 11/13/20 15:09 Plt Count 168 K/mm3 (140-440) 11/13/20 15:09 Lymph % (Auto) 32.1 % (13.4-35.0) 11/11/20 04:37 [place] % (Auto) 9.8 % (0.0-7.3) H 11/11/20 04:37 Eos % (Auto) 4.0 % (0.0-4.3) 11/11/20 04:37 Baso % (Auto) 1.0 % (0.0-1.8) 11/11/20 04:37 Lymph # (Auto) 2.5 K/mm3 (1.2-5.4) 11/11/20 04:37 [place] # (Auto) 0.8 K/mm3 (0.0-0.8) 11/11/20 04:37 Eos # (Auto) 0.3 K/mm3 (0.0-0.4) 11/11/20 04:37 Baso # (Auto) 0.1 K/mm3 (0.0-0.1) 11/11/20 04:37 Seg Neutrophils % 53.1 % (40.0-70.0) 11/11/20 04:37 Seg Neutrophils # 4.2 K/mm3 (1.8-7.7) 11/11/20 04:37 PT 15.5 Sec. (12.2-14.9) H 11/13/20 15:09 INR 1.18 (0.87-1.13) H 11/13/20 15:09 APTT 28.4 Sec. (24.2-36.6) 11/13/20 15:09 Heparin Anti-Xa Level 0.83 U.I./ml (0.3-0.7) H 11/13/20 15:09 Sodium 144 mmol/L (137-145) 11/13/20 10:16 Potassium 3.3 mmol/L (3.6-5.0) L 11/13/20 10:16 Chloride 104.9 mmol/L (98-107) 11/13/20 10:16 Carbon Dioxide 28 mmol/L (22-30) 11/13/20 10:16 Anion Gap 14 mmol/L 11/13/20 10:16 BUN 9 mg/dL (9-20) 11/13/20 10:16 Creatinine 0.8 mg/dL (0.8-1.3) 11/13/20 15:09 Estimated GFR > 60 ml/min 11/13/20 15:09 BUN/Creatinine Ratio 13 % 11/13/20 10:16 Glucose 122 mg/dL (75-100) H 11/13/20 10:16 POC Glucose 103 mg/dL (70-105) 11/13/20 11:40 Calcium 8.9 mg/dL (8.4-10.2) 11/13/20 10:16 Troponin T < 0.010 ng/mL (0.00-0.029) 11/11/20 04:37 TSH 2.490 mlU/mL (0.270-4.200) 11/10/20 03:36 Nasal Screen MRSA (PCR) Negative (Negative) 11/10/20 10:50 Castanon/IV: Voiding Method Urinal Active Medications - Current Medications Current Medications: Generic Name Dose Route Start Last Admin Trade Name Freq PRN Reason Stop Dose Admin Acetaminophen 650 mg 11/10/20 04:16 Acetaminophen 325 Mg Tab PO Q4H PRN Pain MILD(1-3)/Fever >100.5/FUENTES Apixaban 5 mg 11/13/20 12:00 11/13/20 12:23 Apixaban 5 Mg Tab PO 5 mg Q12HR NIURKA Administration Protocol Benzocaine 1 spray 11/14/20 07:00 Benzocaine 20% Top Meredith 0.5 Ml Unit Dose MM 11/14/20 23:59 PREOP NR Sodium Chloride 1,000 mls @ 125 mls/hr 11/10/20 04:30 11/13/20 16:38 Nacl 0.9% 1000 Ml IV 125 mls/hr DIRECT NIURKA Administration Magnesium Hydroxide 30 ml 11/10/20 04:16 Magnesium Hydroxide (Mom) Oral Liqd Udc PO Q4H PRN Constipation Morphine Sulfate 2 mg 11/10/20 04:16 11/11/20 11:09 Morphine 2 Mg/1 Ml Inj IV 2 mg Q4H PRN Administration Pain, Moderate (4-6) Morphine Sulfate 4 mg 11/10/20 04:16 Morphine 4 Mg/1 Ml Inj IV Q4H PRN Pain , Severe (7-10) Nifedipine 60 mg 11/13/20 12:00 11/13/20 12:23 Nifedipine Xl 60 Mg Tab PO 60 mg QDAY NIURKA Administration Ondansetron HCl 4 mg 11/10/20 04:16 Ondansetron 4 Mg/2 Ml Inj IV Q8H PRN Nausea And Vomiting Sodium Chloride 10 ml 11/10/20 10:00 11/13/20 10:05 Sodium Chloride 0.9% 10 Ml Flush Syringe IV 10 ml BID NIURKA Administration Sodium Chloride 10 ml 11/10/20 04:16 Sodium Chloride 0.9% 10 Ml Flush Syringe IV PRN PRN LINE FLUSH
[2020-11-13] MEDS ORDERED: POTASSIUM CHLORIDE ER 20 MEQ TAB PO NR (17:12)
[2020-11-14] MEDS: SODIUM CHLORIDE 0.9% 1000 ML 1,000 ML IV SCH ×2 (00:44→06:58)
[2020-11-14] MEDS ORDERED: BENZOCAINE 20% TOP SPRAY 0.5 ML UNIT DOSE MM NR ×2 (07:00→09:00)
[2020-11-14] MEDS ORDERED: propofoL 200 MG/20 ML VIAL IV ONE ×3 (07:10→07:11)
--- NOTE | 2020-11-14 08:00 | Progress Note ---
Assessment and Plan Pre-syncope Atrial fibrillation of uncertain chronicity Severe left atrial enlargement by TTE Dense spontaneous echo contrast within the left atrial appendage with reduced ASAF velocity - a thrombus cannot be definitely excluded Rate controlled without AV reyna blocking agents TSH level is normal Hypertension Tobacco and alcohol abuse Recommendations: Cardioversion was deferred given dense echo contrast within the left atrial appendage. Continue eliquis therapy with rate control strategy Advise smoking and alcohol cessation Subjective Date of service: 11/14/20 Principal diagnosis: JAKE Interval history: Patient underwent DAKOTA today without complications. Dense spontaneous echo contrast was noted in the left atrial appendage. A thrombus cannot be definitely excluded. Cardioversion was deferred. Objective Vital Signs Temp Pulse Pulse Resp BP Pulse Ox 11/14/20 04:00 60 70 17 100 11/14/20 03:42 98.7 F 11/14/20 03:00 100 H 22 11/14/20 02:00 75 17 96 11/14/20 01:00 65 14 98 11/14/20 00:00 81 66 16 98 11/13/20 23:38 98.1 F 11/13/20 23:00 69 19 164/113 88 11/13/20 22:00 59 L 22 164/113 98 11/13/20 21:00 75 21 164/113 97 11/13/20 20:00 97.6 F 82 79 19 164/113 99 11/13/20 19:00 77 24 164/113 100 11/13/20 18:58 88 19 164/113 96 11/13/20 18:00 77 25 H 164/113 100 11/13/20 17:00 64 14 164/113 100 11/13/20 16:00 65 66 25 H 164/113 100 11/13/20 15:00 68 25 H 164/113 98 11/13/20 14:00 66 9 L 164/113 99 11/13/20 13:03 93 H 13 179/153 100 11/13/20 12:00 97.5 F L 102 H 81 16 150/93 89 11/13/20 11:00 70 18 150/93 100 11/13/20 10:00 62 25 H 157/105 99 11/13/20 09:54 60 159/118 11/13/20 09:00 81 16 159/118 11/13/20 08:00 97.4 F L 55 L 67 20 183/134 100 - Physical Examination General: No Apparent Distress HEENT: Positive: PERRL Neck: Positive: neck supple Cardiac: Positive: irregularly irregular Lungs: Positive: Normal Exam Neuro: Positive: Grossly Intact Abdomen: Positive: Soft Skin: Positive: Clear Musculoskeletal: No Pain Extremities: Absent: edema - Labs and Meds Coagulation 11/13/20 Range/Units 15:09 PT 15.5 H (12.2-14.9) Sec. INR 1.18 H (0.87-1.13) APTT 28.4 (24.2-36.6) Sec. CBC 11/13/20 11/13/20 Range/Units 09:50 15:09 WBC 6.4 (4.5-11.0) K/mm3 RBC 4.60 (3.65-5.03) M/mm3 Hgb 15.0 15.8 H (11.8-15.2) gm/dl Hct 44.5 46.3 H (35.5-45.6) % Plt Count 171 168 (140-440) K/mm3 Comprehensive Metabolic Panel 11/13/20 11/13/20 Range/Units 10:16 15:09 Sodium 144 (137-145) mmol/L Potassium 3.3 L (3.6-5.0) mmol/L Chloride 104.9 (98-107) mmol/L Carbon Dioxide 28 (22-30) mmol/L BUN 9 (9-20) mg/dL Creatinine 0.7 L 0.8 (0.8-1.3) mg/dL Glucose 122 H (75-100) mg/dL Calcium 8.9 (8.4-10.2) mg/dL - Imaging and Cardiology EKG: report reviewed, image reviewed Echo: pending
[2020-11-14 08:53] VITALS: BP 123/75
--- NOTE | 2020-11-14 09:03 | Anesthesia Consultation ---
Anesthesia Consult and Med Hx Date of service: 11/14/20 - Airway Anesthetic Teeth Evaluation: Good ROM Head & Neck: Adequate Mental/Hyoid Distance: Adequate Mallampati Class: Class II Intubation Access Assessment: Good - Pulmonary Exam CTA: Yes - Cardiac Exam Anesthetic Concerns: a fib - Pre-Operative Health Status ASA Pre-Surgery Classification: ASA3 Proposed Anesthetic Plan: MAC - Pulmonary Hx Smoking: Yes (1/2 ppd x 41 years) Hx Asthma: No COPD: No Hx Pneumonia: No - Cardiovascular System Hx Hypertension: Yes - Central Nervous System Hx Psychiatric Problems: Yes (schizophrenia) - Endocrine Hx Renal Disease: No Hx End Stage Renal Disease: No
--- NOTE | 2020-11-14 09:04 | Anesthesia Day of Surgery ---
Anesthesia Day of Surgery - Day of Surgery Patient Examined: Yes Patient H&P Reviewed: Yes Patient is NPO: Yes
--- NOTE | 2020-11-14 09:49 | Post Anesthesia Evaluation ---
- Post Anesthesia Evaluation Patient Participated: Yes Airway Patent: Yes Stable Respiratory Function: Yes Nausea/Vomiting: No Temp > 96.8F: Yes Pain Manageable: Yes Adequeate Hydration: Yes Anesthesia Complications: No Block Receding Appropriately: Not Applicable Patient on Ventilator: No
[2020-11-14] MEDS: APIXABAN 5 MG TAB PO SCH (10:08)
[2020-11-14] MEDS: NIFEdipine XL 60 MG TAB PO SCH (10:08)
[2020-11-14] MEDS: ACETAMINOPHEN 325 MG TAB PO PRN ×2 (10:08→15:43)
--- NOTE | 2020-11-14 12:35 | Discharge Summary ---
Providers - Providers Date of Admission: 11/10/20 04:16 Date of discharge: 11/14/20 Attending physician: ANTONIA SUTHERLAND 11/10/20 04:16 Consult to Physician [CONS] Routine Comment: Consulting Provider: JESUSITA JOSEPH Physician Instructions: Reason For Exam: Afib - new onset Primary care physician: CLIENT CARE SPECIALIST Hospitalization Reason for admission: Dizziness/lightheadedness/near syncope/new onset A. fib Condition: Stable Pertinent studies: CT head without contrast : No acute abnormality forearm x-ray: No acute abnormality DAKOTA: Left atrium slightly dilated, no thrombus, LV ejection fraction normal range carotid Doppler: Less than 50% stenosis Echocardiogram: 50 to 55% ejection fraction Hospital course: Dizziness Lightheadedness History of present illness: 65-year-old -[place] male with known history of hypertension presents to the emergency room today with complaints of dizziness and lightheadedness which started a few hours prior to arrival in the emergency room. Patient said he felt weak and thereafter fell to the ground. He denies any loss of consciousness, no head injury, no headache. Patient denies any history of fever or chills, no diaphoresis, no nausea or vomiting, no chest pain or shortness of breath, no abdominal pain, no hematuria or dysuria. Patient denies any history of syncope and denies any history of seizure disorder. Patient complains of right forearm pain after the fall. He denies any unsteady gait. Work-up in the emergency room today, labs revealed elevated BUN and creatinine. EKG reveals atrial fibrillation with a rate of 87. CT scan of the head was unremarkable. X-ray of the right forearm did not show any acute abnormality. Patient is being admitted with dehydration with JAKE, near syncope and new onset atrial fibrillation. Patient was admitted to the hospital, appropriately managed, evaluated by second floor operator, had cardiac work-up with echocardiogram, carotid Doppler, DAKOTA Findings of which are as mentioned above. Patient was started on beta-blockers and chronic anticoagulation Patient symptoms significantly improved. Today patient is comfortable no new complaints vital signs stable Physical examination prior to discharge did not show any new changes Cleared by consultants for discharge and follow-up in the office for further evaluation and management. Patient is hemodynamically and clinically stable at discharge. Discharge diagnosis --New onset atrial fibrillation/rate controlled Cardiac work-up as mentioned above Cardiology following, continue beta-blockers Anticoagulation with Eliquis, Initially DAKOTA guided cardioversion was considered However it was not done, further evaluation as outpatient --Hypokalemia ; Current Visit: Yes Status: Acute Replenished with oral KCl Monitor electrolytes -- Acute renal failure Current Visit: Yes Status: Acute JAKE sec to ATN, IV fluids for now Closely monitor renal function, avoid nephrotoxin Nephrology evaluation if no improvement --Near syncope; Current Visit: Yes Status: Acute Continue syncope work-up CT head, carotid Doppler, echocardiogram Fall precautions, PT OT Possible home health upon discharge --History of fall Current Visit: Yes Status: Acute Fall precautions. Physical therapy occupational therapy Possible home with home health --DVT prophylaxis Current Visit: Yes Status: Acute Patient placed on subcutaneous heparin. --Full code status Current Visit: Yes Status: Acute Patient is a full code. Stable at discharge Disposition: DC-01 TO HOME OR SELFCARE Final Discharge Diagnosis (Prints w/discharge instructions): New onset atrial fibrillation. Hypokalemia resolved. Acute renal failure improved. Near syncope/stable history of fall. Ongoing tobacco use. Recreational drug use. Chronic alcohol use. Medical noncompliance Time spent for discharge: 35 min Core Measure Documentation - Palliative Care Palliative Care/ Comfort Measures: Not Applicable - Core Measures Any of the following diagnoses?: none Exam - Constitutional Vitals: Temp Pulse Resp BP Pulse Ox 97.4 F L 82 19 123/75 100 11/14/20 07:52 11/14/20 08:30 11/14/20 08:30 11/14/20 08:30 11/14/20 08:30 General appearance: Present: no acute distress, well-nourished - EENT Eyes: Present: PERRL, EOM intact - Neck Neck: Present: supple, normal ROM - Respiratory Respiratory effort: normal Respiratory: bilateral: diminished, negative: rales, rhonchi, wheezing - Cardiovascular Rhythm: regular Heart Sounds: Present: S1 & S2 - Extremities Extremities: no ischemia, No edema - Abdominal General gastrointestinal: Present: soft, non-tender, non-distended, normal bowel sounds - Integumentary Integumentary: Present: clear, warm - Musculoskeletal Musculoskeletal: strength equal bilaterally - Psychiatric Psychiatric: appropriate mood/affect, cooperative - Neurologic Neurologic: moves all extremities Plan Activity: advance as tolerated, fall precautions Diet: other (Cardiac diet) Special Instructions: smoking cessation Additional Instructions: Advised to quit smoking, use nicotine patch as needed. Advised to quit alcohol intake. Advised to quit recreational drug use marijuana and cocaine. Advised to seek alcohol rehabilitation and alcohol Anonymous support group. If you have worsening symptoms contact MD or go to emergency room as needed Follow up with: PRIMARY CARE, [Primary Care Provider] - 7 Days INA MARSHALL MD [Staff Physician] - 7 Days Prescriptions: Apixaban [Eliquis] 5 mg PO Q12HR #60 tablet NIFEdipine XL [Procardia Xl] 60 mg PO QDAY #30 tablet
== END 2020-11-14 18:15 | disposition home or self-care (01) | DRG 308 ==
LOC: ED 23:09 → IMCU 11-10 04:16 → INTOOBSV 11-12 12:00 → OBSVTOIN 11-12 12:00 → 4A 11-14 09:07
PROVIDERS: ADMIT Internal Medicine Geriatric Medicine; ATTEND Internal Medicine
DX: I48.91 Unspecified atrial fibrillation (principal); N17.0 Acute kidney failure with tubular necrosis; E86.0 Dehydration; I10 Essential (primary) hypertension; F10.10 Alcohol abuse, uncomplicated; F20.9 Schizophrenia, unspecified; E87.6 Hypokalemia; S50.811A Abrasion of right forearm, initial encounter; F17.210 Nicotine dependence, cigarettes, uncomplicated; Z79.82 Long term (current) use of aspirin; W18.39XA Other fall on same level, initial encounter; Y93.89 Activity, other specified; Y92.89 Other specified places as the place of occurrence of the external cause; Y99.8 Other external cause status
CPT/HCPCS: 36415; 70450; 80048; 82565; 82962; 84443; 84484; 85014; 85018; 85025; 85027; 85049; 85520; 85610; 85730; 87641; 93005; 93306; 93312; 93320; 93325; 93880; 96374; 99406; G0378; J1644; J2270; J2704; J3480; J7030